=== PATIENT | female | born 1935 | race Hispanic/Latino ===

== ENCOUNTER 2017-12-27 22:17 | Emergency (ER) | payer MEDICARE ==
[2017-12-27] MEDS ORDERED: ONDANSETRON HCL 4 MG/2 ML VIAL ONE (22:49)
[2017-12-27] MEDS ORDERED: DIAZEPAM 2 MG TAB ONE (22:49)
[2017-12-27] MEDS ORDERED: SODIUM CHLORIDE 0.9% 500ML 500 ML IV ONE (22:50)
[2017-12-27 22:51] LABS: BASOPHILS % (AUTO) 0.7 % (0.0-5.0); EOSINOPHILS % (AUTO) 0.6 % (0.0-8.0); HEMATOCRIT 36.2 % (36-48); LYMPHOCYTES % (AUTO) 17.3 % (21.0-51.0); MEAN CORPUSCULAR HEMOGLOBIN 32.8 pg (27.0-33.0); MEAN CORPUSCULAR HGB CONC 34.2 g/dL (32.0-36.0); MEAN CORPUSCULAR VOLUME 95.9 fL (79-99); MONOCYTES % (AUTO) 6.1 % (3.0-13.0); NEUTROPHILS % (AUTO) 75.3 % (40.0-77.0); PLATELET COUNT (AUTO) 235 K/uL (130-400); RED BLOOD CELL COUNT(AUTO) 3.78 MIL/uL (4.00-5.50); RED CELL DISTRIBUTION WIDTH 13.1 % (11.0-15.5); WHITE BLOOD COUNT (AUTO) 8.9 K/uL (4.8-10.8)
[2017-12-27 23:17] LABS: CREATININE 0.7 mg/dL (0.5-1.5); POTASSIUM 4.4 mmol/L (3.5-5.1)
[2017-12-27 23:19] LABS: INR 0.94 (0.85-1.15); PARTIAL THROMBOPLASTIN TIME 25.9 SEC (26.3-35.5); PROTHROMBIN TIME 9.9 SEC (9.6-11.6)
[2017-12-27 23:35] LABS: ALBUMIN 3.7 g/dL (3.5-5.0); BILIRUBIN,TOTAL 0.3 mg/dL (0.2-1.0); TOTAL PROTEIN, SERUM 7.6 g/dL (6.0-8.3)
[2017-12-27 23:56] LABS: APPEARANCE,URINE Cloudy (CLEAR); BILIRUBIN,URINE Negative (NEGATIVE); COLOR,URINE Yellow (YELLOW); GLUCOSE, URINE (UA) 500 mg/dL (NEGATIVE); KETONES,URINE Negative (NEGATIVE); LEUKOCYTE ESTERASE ,URINE Large (NEGATIVE); NITRATE,URINE Negative (NEGATIVE); OCCULT BLOOD,URINE Small (NEGATIVE); PH,URINE >=9.0 (5.0-8.0); PROTEIN,URINE POS 1+ (NEGATIVE); UROBILINOGEN,URINE 0.2 mg/dL (0.2-1.0)
[2017-12-28 00:09] LABS: BACTERIA,URINE Few /HPF (None Seen); RBC,URINE 0-1 /HPF (0-1)
[2017-12-28 00:10] LABS: AMORPHOUS SEDIMENT,UR Moderate /LPF (None Seen)
[2017-12-28] MEDS ORDERED: KETOROLAC TROMETHAMINE 30MG/ML ONE (01:02)
== END 2017-12-28 01:18 | disposition home or self-care (01) ==
LOC: EDH 22:17
DX: R10.13 Epigastric pain (principal); R63.0 Anorexia; R11.0 Nausea; M54.9 Dorsalgia, unspecified; E11.9 Type 2 diabetes mellitus without complications; I10 Essential (primary) hypertension; E78.5 Hyperlipidemia, unspecified; Z90.49 Acquired absence of other specified parts of digestive tract; Z85.3 Personal history of malignant neoplasm of breast
CPT/HCPCS: 36415; 71045; 74176; 80053; 81001; 82550; 83874; 83880; 84484; 85025; 85610; 85730; 93005; 96374; 96375; 99285; J1885; J2405; J7040

== ENCOUNTER 2018-01-16 06:14 | Day surgery (SDC) | payer MEDICARE ==
[2018-01-16] VITALS (10 sets, daily range): BP systolic 131–208; BP diastolic 68–97
[~2018-01-16] VITALS: Ht 147.3 cm; Wt 63.9 kg
[~2018-01-16 06:14] MED LIST: AEC81 PO; AMLO5TAB9 PO; BACL5TAB PO; CA C1TAB95 PO; CARV25TA PO; CETI10TA57 PO; CITA40TA6 PO; CYAN250014 PO; FERS325 PO; FISH1CAP50 PO; FLUT16H NASAL; GLIP1TAB6 PO; IMMODIUM PO; LETR2.5T6 PO; LEVO50TA11 PO; LINA5TAB PO; LOSA100T58 PO; MAGN250T2 PO; MV-M1TAB20 PO; NIAC500T22 PO; PANT40TA25 PO; SIMV10TA6 PO; SODIUM CHLORIDE 0.9% 1000ML 1,000 ML IV ONE; TRAM50TA2 PO
[2018-01-16] MEDS ORDERED: INSU3INS3 SQ (08:31)
[2018-01-16] MEDS ORDERED: LABETALOL HCL 5 MG/ML 20ML VIAL IV ONE (09:53)
[2018-01-16] MEDS ORDERED: LABETALOL 20 MG/4 ML DISP.SYRIN IV SCH (09:58)
--- NOTE | 2018-01-16 09:58 | NUR ---
UPDATE PATIENT PICKED UP FROM [facility].
== END 2018-01-16 10:33 | disposition home or self-care (01) ==
LOC: DAH 06:14 → ENDO 06:14
PROVIDERS: ATTEND Internal Medicine
DX: K29.50 Unspecified chronic gastritis without bleeding (principal); K22.8 Other specified diseases of esophagus; K44.9 Diaphragmatic hernia without obstruction or gangrene; K31.89 Other diseases of stomach and duodenum; E78.5 Hyperlipidemia, unspecified; I10 Essential (primary) hypertension; E11.9 Type 2 diabetes mellitus without complications; Z85.3 Personal history of malignant neoplasm of breast; Z90.12 Acquired absence of left breast and nipple; Z90.710 Acquired absence of both cervix and uterus; Z90.49 Acquired absence of other specified parts of digestive tract; Z79.899 Other long term (current) drug therapy; Z98.890 Other specified postprocedural states
CPT/HCPCS: 43239; 82948 ×2; 88305; 88312; 88342; 93005; A4606; J3490; J7030

== ENCOUNTER 2018-11-27 14:21 | Emergency (ER) | payer MEDICARE ==
[~2018-11-27 14:21] MED LIST changes: +INSU3INS3 SQ; -SODIUM CHLORIDE 0.9% 1000ML 1,000 ML IV ONE
== END 2018-11-27 16:36 | disposition home or self-care (01) ==
LOC: EDH 14:21
DX: S62.396A Other fracture of fifth metacarpal bone, right hand, initial encounter for closed fracture (principal); S00.83XA Contusion of other part of head, initial encounter; E11.9 Type 2 diabetes mellitus without complications; I10 Essential (primary) hypertension; E78.5 Hyperlipidemia, unspecified; Z85.3 Personal history of malignant neoplasm of breast; Z87.891 Personal history of nicotine dependence; Z79.4 Long term (current) use of insulin; W18.39XA Other fall on same level, initial encounter; Y93.01 Activity, walking, marching and hiking; Y92.89 Other specified places as the place of occurrence of the external cause; Y99.8 Other external cause status
CPT/HCPCS: 29125; 73130

== ENCOUNTER → 2021-04-12 | Outpatient (CLI) | payer MEDICARE ==
[~2021-04-12] MED LIST changes: +AMLO-257 PO; -AMLO5TAB9 PO; +CITA-108 PO; -CITA40TA6 PO; -LETR2.5T6 PO; +LETR2.5T7 PO; -MAGN250T2 PO; +MAGN250T35 PO; -PANT40TA25 PO; +PANT40TA54 PO; +REGADENOSON 0.4 MG/5 ML PF SYG IVP SCH; -SIMV10TA6 PO; +SIMV10TA97 PO
== END | disposition home or self-care (01) ==
LOC: SHCH 10:00
PROVIDERS: ATTEND Internal Medicine Cardiovascular Disease
DX: I20.9 Angina pectoris, unspecified (principal); R07.9 Chest pain, unspecified; R06.09 Other forms of dyspnea; R10.9 Unspecified abdominal pain
CPT/HCPCS: 78452; 93017; 96374; A9500 ×2; J2785